=== PATIENT | male | born 1935 | race Caucasian/White ===

== ENCOUNTER 2022-06-12 09:46 | Emergency (ER) | payer OTHER, MEDICARE ==
[~2022-06-12] VITALS: Ht 172.7 cm; Wt 72.0 kg
[2022-06-12 10:06] VITALS: BP 150/84
[2022-06-12] MEDS ORDERED: ibuprofen 200mg tablet PO ONE (12:20)
[2022-06-12] MEDS ORDERED: HYDR-3965 PO (15:41)
== END 2022-06-12 15:56 | disposition home or self-care (01) ==
LOC: ER 09:46
DX: S00.83XA Contusion of other part of head, initial encounter (principal); J84.10 Pulmonary fibrosis, unspecified; M79.602 Pain in left arm; V98.8XXA Other specified transport accidents, initial encounter; Y93.89 Activity, other specified; Y92.89 Other specified places as the place of occurrence of the external cause; Y99.8 Other external cause status
CPT/HCPCS: 70450; 71100; 72128; 72131; 99284